=== PATIENT | female | born 1990 | race African-American/Black ===

== ENCOUNTER 2024-03-21 10:02 | Emergency (ER) | payer OTHER, MEDICAID, SELFPAY ==
--- NOTE | ~2024-03-21 | US_ITS ---
EXAMINATION: US pelvic complete w TV DATE: 03/21/2024 13:11 INDICATION: Abnormal uterine bleeding. TECHNIQUE: Multiple transabdominal and transvaginal sonographic images of the pelvis were obtained. COMPARISON: None. FINDINGS: TRANSABDOMINAL ULTRASOUND: The uterus measures 8.8 x 4.9 x 5.2 cm. There is physiologic free fluid in the pelvis. TRANSVAGINAL ULTRASOUND: The endometrial complex measures 7 mm in thickness. The right ovary measures 3.4 x 2.0 x 1.7 cm. The left ovary measures 2.5 x 1.6 x 1.9 cm. IMPRESSION: 1. Normal pelvis. Reviewed, dictated and finalized at location A. [employer] IMPRESSION: 1. Normal pelvis.
[2024-03-21 10:10] VITALS: BP 164/60; PULSE 107; RESP 18; TEMP 36.8; O2SAT 100
--- OUTSIDE RECORDS SUMMARY | 2024-03-21 10:41 | XMS_ITS | CONTINUITY OF CARE DOCUMENT ---
Author Name leanne perdomo Address Unknown Organization [facility] Address [address] [address] [facility] [address] [place] [address] Phone [phone] Care Team Providers Care Top Lift Trimmer Name Role Phone leanne perdomo Unavailable Unavailable INSURANCE PROVIDERS Payer name Policy type / Coverage type [place] red democrat ID [facility] PLAN Medicaid [id number]
--- NOTE | 2024-03-21 11:15 | ED_ITS ---
HPI - General Chief complaint: Vaginal Bleeding <Concepción Mae PA-C - Last Filed: 03/22/24 17:04> Stated complaint: vaginal bleeding, 8 weeks <Concepción Mae PA-C - Last Filed: 03/22/24 17:04> Time Seen by Provider: 03/21/24 11:15 <Concepción Mae PA-C - Last Filed: 03/22/24 17:04> Focused HPI: This is a 33 year old female that presents to the ER for vaginal bleeding. Reports she is about 8 weeks . She has not had an US yet this . Reports her LMP was sometime in the end of November. Believes she passed the fetus into the toilet this morning. 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 GENERAL: Well-appearing, well-nourished, and in no acute distress. HEAD: Normocephalic, atraumatic. CHEST: Clear to auscultation. ?No respiratory distress. HEART: Regular rate and rhythm.? NEURO: ?Alert and oriented x3. Patient screened in triage and initial orders placed.? ?Additional care and disposition to be based upon?diagnostic testing and treatment. <Concepción Mae PA-C - Last Filed: 03/22/24 17:04> History of Present Illness HPI Narrative: I agree with the above HPI <Josh Cote MD - Last Filed: 03/21/24 19:55> Related Data Allergies/Adverse reactions: Allergies Allergy/AdvReac Type Severity Reaction Status Date / Time No Known Allergies Allergy Verified 03/21/24 10:10 <Concepción Mae PA-C - Last Filed: 03/22/24 17:04> Review of Systems 2 Review of Systems: All systems reviewed & are unremarkable except as noted in HPI and below <Josh Cote MD - Last Filed: 03/21/24 19:55> PMFSH Past Medical History Medical History: Medical History (Updated 03/22/24 @ 17:03 by Concepción Mae PA-C) No active medical problems <Concepción Mae PA-C - Last Filed: 03/22/24 17:04> Social History Social History: Social History (Updated 03/22/24 @ 17:04 by Concepción Mae PA-C) Smoking status: Never smoker <Concepción Mae PA-C - Last Filed: 03/22/24 17:04> Exam 2 Narrative: APPEARANCE: Well appearing, no pain, no distress, well-nourished. HEAD: normocephalic, atraumatic. EYES: PERRLA/EOMI, conjunctivae clear. NOSE: Normal no drainage EARS:TMS clear with good light reflex. THROAT: Pharynx clear, no exudate. NECK: Supple. No adenopathy, no masses. RESPIRATORY: Airway patent, respirations nonlabored. Clear to auscultation bilaterally, no rales, rhonchi, wheezing. CARDIOVASCULAR: Regular rate and rhythm without murmurs rubs or gallops. ABDOMINAL: Soft, nontender, nondistended, normal bowel sounds MUSCULOSKELETAL: Moves all extremities. Strength/ROM intact, No edema, No calf tenderness. NEURO: Alert. Cranial nerves II through XII intact. Good gait. Good coordination SKIN: Warm, dry. Normal Color <Josh Cote MD - Last Filed: 03/21/24 19:55> Course Vital Signs Vital signs: Vital Signs Temperature 98.2 F 03/21/24 10:10 Pulse Rate 107 H 03/21/24 10:10 Respiratory Rate 18 03/21/24 10:10 Blood Pressure 164/60 H 03/21/24 10:10 Pulse Oximetry 100 03/21/24 10:10 Oxygen Delivery Room Air 03/21/24 10:10 Temperature 98.2 F 03/21/24 10:10 Pulse Rate 80 03/21/24 15:44 Respiratory Rate 16 03/21/24 15:44 Blood Pressure 116/71 03/21/24 15:44 Pulse Oximetry 100 03/21/24 15:44 Oxygen Delivery Room Air 03/21/24 10:10 <Concepción Mae PA-C - Last Filed: 03/22/24 17:04> Vital Signs Temperature 98.2 F 03/21/24 10:10 Pulse Rate 107 H 03/21/24 10:10 Respiratory Rate 18 03/21/24 10:10 Blood Pressure 164/60 H 03/21/24 10:10 Pulse Oximetry 100 03/21/24 10:10 Oxygen Delivery Room Air 03/21/24 10:10 Temperature 98.2 F 03/21/24 10:10 Pulse Rate 80 03/21/24 15:44 Respiratory Rate 16 03/21/24 15:44 Blood Pressure 116/71 03/21/24 15:44 Pulse Oximetry 100 03/21/24 15:44 Oxygen Delivery Room Air 03/21/24 10:10 <Josh Cote MD - Last Filed: 03/21/24 19:55> MDM - OB/Uterine Contractions MDM Narrative Medical decision making narrative: 33-year-old female presents emergency department for evaluation for vaginal bleeding during suspected early . Patient has produced test was negative here patient is afebrile with no leukocytosis and a stable hemoglobin 11.6. Patient has INR of 1.0. Patient did have anion gap of 16 glucose is within normal limits. No acute abnormalities on the patient's CMP. Patient's beta hCG was undetectable. Patient's blood type was O positive. Pelvic ultrasound showed normal exam. I suspect this is heavy vaginal bleeding secondary to irregular periods patient reports her last menstrual cycles approximately 2 months ago. <Josh Cote MD - Last Filed: 03/21/24 19:55> Differential Diagnosis Differential diagnosis: Likely other (Menstrual bleeding, ectopic , miscarriage) <Josh Cote MD - Last Filed: 03/21/24 19:55> Lab Data Attestation: I reviewed the patient's lab results. <Josh Cote MD - Last Filed: 03/21/24 19:55> Result diagrams: 03/21/24 11:18 03/21/24 11:18 <Concepción Mae PA-C - Last Filed: 03/22/24 17:04> Labs: Lab Results 03/21/24 Range/Units 11:18 WBC 8.6 (4.5-10.0) K/mm3 RBC 3.93 L (4.2-5.4) M/mm3 Hgb 11.6 L (12.0-15.0) g/dL Hct 36.1 L (37.0-47.0) % MCV 91.9 (80-100) fl MCH 29.5 (26-34) pg MCHC 32.1 (32-36) g/dl RDW 13.3 (11.5-14.5) % Plt Count 234 (150-375) k/mm3 MPV 11.7 H (7.4-10.4) fl Immature Gran % (Auto) 0.3 (0-0.5) % Neut % (Auto) 59.2 (45.5-73.1) % Lymph % (Auto) 34.5 (18.3-44.2) % [place] % (Auto) 4.0 (2.6-8.5) % Eos % (Auto) 1.4 (0-4.4) % Baso % (Auto) 0.6 (0.2-1.2) % Lymph # (Auto) 2.97 (0.9-3.2) K/mm3 [place] # (Auto) 0.3 (0.1-0.6) K/mm3 Eos # (Auto) 0.1 (0-0.3) K/mm3 Baso # (Auto) 0.1 (0.0-0.1) K/mm3 Abs Immat Gran (auto) 0.03 (0.00-0.031) K/mm3 Absolute Neuts (auto) 5.1 (1.3-6.7) K/mm3 Absolute Nucleated RBC 0.000 (0.0-0.012) K/mm3 Nucleated RBC % 0.0 (0.0-0.2) % PT 13.3 (11.1-14.7) Seconds INR 1.0 APTT 26.0 (22.3-36.8) Seconds Sodium 141 (137-145) mmol/L Potassium 3.8 (3.4-5.0) mmol/L Chloride 104 (98-107) mmol/L Carbon Dioxide 21 L (22-30) mmol/L Anion Gap 16 H (4-12) mmol/L BUN 9 (7-17) mg/dL Creatinine 0.73 (0.7-1.0) mg/dL Estim Creat Clear Calc 83 ml/min Estimated GFR > 60 (59 - ) Glucose 71 (65-110) mg/dL Calcium 9.4 (8.4-10.2) mg/dL Total Bilirubin 0.6 (0.2-1.3) mg/dL AST 25 (14-36) U/L ALT 20 (6-35) U/L Alkaline Phosphatase 85 (38-126) U/L Total Protein 9.0 H (6.3-8.2) g/dL Albumin 4.6 (3.5-5.1) g/dL Beta HCG, Quant < 2.39 mIU/ML Blood Type O Positive Antibody Screen Negative Screen Not Reportable Baby's Blood Type Not Reportable Baby's MARLO Not Reportable Doses of RhIg Required 0 <Concepción Mae PA-C - Last Filed: 03/22/24 17:04> Lab Results 03/21/24 Range/Units 11:18 WBC 8.6 (4.5-10.0) K/mm3 RBC 3.93 L (4.2-5.4) M/mm3 Hgb 11.6 L (12.0-15.0) g/dL Hct 36.1 L (37.0-47.0) % MCV 91.9 (80-100) fl MCH 29.5 (26-34) pg MCHC 32.1 (32-36) g/dl RDW 13.3 (11.5-14.5) % Plt Count 234 (150-375) k/mm3 MPV 11.7 H (7.4-10.4) fl Immature Gran % (Auto) 0.3 (0-0.5) % Neut % (Auto) 59.2 (45.5-73.1) % Lymph % (Auto) 34.5 (18.3-44.2) % [place] % (Auto) 4.0 (2.6-8.5) % Eos % (Auto) 1.4 (0-4.4) % Baso % (Auto) 0.6 (0.2-1.2) % Lymph # (Auto) 2.97 (0.9-3.2) K/mm3 [place] # (Auto) 0.3 (0.1-0.6) K/mm3 Eos # (Auto) 0.1 (0-0.3) K/mm3 Baso # (Auto) 0.1 (0.0-0.1) K/mm3 Abs Immat Gran (auto) 0.03 (0.00-0.031) K/mm3 Absolute Neuts (auto) 5.1 (1.3-6.7) K/mm3 Absolute Nucleated RBC 0.000 (0.0-0.012) K/mm3 Nucleated RBC % 0.0 (0.0-0.2) % PT 13.3 (11.1-14.7) Seconds INR 1.0 APTT 26.0 (22.3-36.8) Seconds Sodium 141 (137-145) mmol/L Potassium 3.8 (3.4-5.0) mmol/L Chloride 104 (98-107) mmol/L Carbon Dioxide 21 L (22-30) mmol/L Anion Gap 16 H (4-12) mmol/L BUN 9 (7-17) mg/dL Creatinine 0.73 (0.7-1.0) mg/dL Estim Creat Clear Calc 83 ml/min Estimated GFR > 60 (59 - ) Glucose 71 (65-110) mg/dL Calcium 9.4 (8.4-10.2) mg/dL Total Bilirubin 0.6 (0.2-1.3) mg/dL AST 25 (14-36) U/L ALT 20 (6-35) U/L Alkaline Phosphatase 85 (38-126) U/L Total Protein 9.0 H (6.3-8.2) g/dL Albumin 4.6 (3.5-5.1) g/dL Beta HCG, Quant < 2.39 mIU/ML Blood Type O Positive Antibody Screen Negative Screen Not Reportable Baby's Blood Type Not Reportable Baby's MARLO Not Reportable Doses of RhIg Required 0 <Josh Cote MD - Last Filed: 03/21/24 19:55> Imaging Data Radiologist's impression: Impressions Pelvic/Transvag US 03/21/24 13:25 IMPRESSION: 1. Normal pelvis. <Josh Cote MD - Last Filed: 03/21/24 19:55> Critical Care Time Critical Care Time Critical Care Time: No <Concepción Mae PA-C - Last Filed: 03/22/24 17:04> Discharge Plan Discharge Clinical Impression: Dysfunctional uterine bleeding <Concepción Mae PA-C - Last Filed: 03/22/24 17:04> Patient Disposition: Home, Self-Care <Concepción Mae PA-C - Last Filed: 03/22/24 17:04> Condition: Stable <Concepción Mae PA-C - Last Filed: 03/22/24 17:04> Instructions: Antibiotic Form, Abnormal (Dysfunctional) Uterine Bleeding (ED) <Concepción Mae PA-C - Last Filed: 03/22/24 17:04> Additional Instructions: Have close follow-up with your primary care physician. If you have any worsening symptoms please call or return to the emergency department. <Concepción Mae PA-C - Last Filed: 03/22/24 17:04> Patient Language: [place] <LYNN Griggs Last Filed: 03/22/24 17:04> Follow-up/Referrals: UNKNOWN,DOCTOR [Primary Care Provider] - <Concepción Mae PA-C - Last Filed: 03/22/24 17:04>
[2024-03-21 11:39] LABS: Prothrombin Time 13.3 Seconds (11.1-14.7)
[2024-03-21 11:42] LABS: Basophils Absolute Auto 0.1 K/mm3 (0.0-0.1); Basophils Percent Auto 0.6 % (0.2-1.2); Eosinophils Absolute Auto 0.1 K/mm3 (0-0.3); Eosinophils Percent Auto 1.4 % (0-4.4); Hematocrit 36.1 % (37.0-47.0); Hemoglobin 11.6 g/dL (12.0-15.0); Immature Granulocyte Absolute 0.03 K/mm3 (0.00-0.031); Immature Granulocyte Percent A 0.3 % (0-0.5); Lymphocytes Absolute Auto 2.97 K/mm3 (0.9-3.2); Lymphocytes Percent Auto 34.5 % (18.3-44.2); Mean Corpuscular HGB Conc 32.1 g/dl (32-36); Mean Corpuscular Hemoglobin 29.5 pg (26-34); Mean Corpuscular Volume 91.9 fl (80-100); Mean Platelet Volume 11.7 fl (7.4-10.4); Monocytes Absolute Auto 0.3 K/mm3 (0.1-0.6); Neutrophils Absolute Auto 5.1 K/mm3 (1.3-6.7); Neutrophils Percent Auto 59.2 % (45.5-73.1); Platelet Count Result 234 k/mm3 (150-375); Red Blood Count 3.93 M/mm3 (4.2-5.4); Red Cell Distribution Width 13.3 % (11.5-14.5); White Blood Count 8.6 K/mm3 (4.5-10.0)
[2024-03-21 11:43] LABS: Alanine Aminotransferase 20 U/L (6-35); Albumin Level 4.6 g/dL (3.5-5.1); Alkaline Phosphatase 85 U/L (38-126); Anion Gap 16 mmol/L (4-12); Aspartate Amino Transferase 25 U/L (14-36); Bilirubin,Total 0.6 mg/dL (0.2-1.3); Blood Urea Nitrogen 9 mg/dL (7-17); Calcium 9.4 mg/dL (8.4-10.2); Carbon Dioxide 21 mmol/L (22-30); Chloride 104 mmol/L (98-107); Estimated CRCL calculation 83 ml/min; Estimated Glomerular Filt Rate > 60; Glucose 71 mg/dL (65-110); Potassium 3.8 mmol/L (3.4-5.0); Sodium 141 mmol/L (137-145)
[2024-03-21 11:59] LABS: Beta HCG Quantitative < 2.39 mIU/ML
--- NOTE | 2024-03-21 12:27 | PC.NURSE ---
Patient to ultrasound at this time.
--- OUTSIDE RECORDS SUMMARY | 2024-03-21 15:25 | XMS_ITS | Continuity of Care Document ---
Author Name Alissa Page Address [address] [place], [place] [id number] [place] [address] Organization Unknown Address [address] [place], [place] [id number] [place] [address] Medications No known medications Problems No known problems
--- OUTSIDE RECORDS SUMMARY | 2024-03-21 15:25 | XMS_ITS | Continuity of Care Document ---
Author Name Alissa Page Address [address] [place] [address] Organization Unknown Address [address] [place], [place] [id number] [place] [address] Medications No known medications Problems No known problems
--- OUTSIDE RECORDS SUMMARY | 2024-03-21 15:25 | XMS_ITS | CONTINUITY OF CARE DOCUMENT ---
Author Name leanne perdomo Address Unknown Organization [facility] Address [address] [place] [address] Phone [phone] Care Team Providers Care Slip Presser Name Role Phone leanne perdomo Unavailable Unavailable INSURANCE PROVIDERS Payer name Policy type / Coverage type [place] red republican ID [facility] PLAN Medicaid [id number]
[2024-03-21 15:44] VITALS: BP 116/71; PULSE 80; RESP 16; O2SAT 100
== END 2024-03-21 15:46 | disposition home or self-care (01) ==
PROVIDERS: Physician Assistant; Emergency Provider Emergency Medicine
DX: N93.8 Other specified abnormal uterine and vaginal bleeding (principal)
CPT/HCPCS: 36415; 76830; 76856; 80053; 84702; 85025; 85461; 85610; 85730; 86850; 86900; 86901; 99284